=== PATIENT | female | born 1980 | race Caucasian/White ===

== ENCOUNTER 2017-02-26 10:45 | Emergency (ER) | payer BC, OTHER | END 2017-02-26 12:30 | disposition left against medical advice (07) | LOC: UCEAST 10:45 | DX: R50.9 Fever, unspecified (principal); Z53.21 Procedure and treatment not carried out due to patient leaving prior to being seen by health care provider ==

== ENCOUNTER 2017-02-26 14:35 | Emergency (ER) | payer BC ==
--- NOTE | 2017-02-26 16:17 | UC ---
UC General HPI - HPI Summary HPI Summary: subjective fever and body aches for 1 day, no cough, nausea, vomiting or diarrhea. patient is concerned about typhoid fever (as she stated having it several times in the past - History of Current Complaint Chief Complaint: UCGeneralIllness Stated Complaint: FEVER Time Seen by Provider: 02/26/17 15:53 Hx Obtained From: Patient Hx Last Menstrual Period: 02/03/17 Onset/Duration: Sudden Onset, Lasting Days, Still Present Timing: Constant Onset Severity: Mild Current Severity: Mild - Allergy/Home Medications Allergies/Adverse Reactions: Allergies Allergy/AdvReac Type Severity Reaction Status Date / Time No Known Allergies Allergy Verified 02/26/17 11:44 PMH/Surg Hx/FS Hx/Imm Hx Previously Healthy: No - Typhoid - Surgical History Surgical History: None - Family History Known Family History: Positive: None - Social History Occupation: Disabled Lives: With Family Alcohol Use: None Substance Use Type: None Smoking Status (MU): Never Smoked Tobacco Have You Smoked in the Last Year: No - Immunization History Most Recent Influenza Vaccination: 12/2016 Review of Systems Constitutional: Chills, Fatigue Skin: Negative Eyes: Negative ENT: Negative Respiratory: Negative Cardiovascular: Negative Gastrointestinal: Negative Genitourinary: Negative Motor: Negative Neurovascular: Negative Musculoskeletal: Negative Neurological: Negative Psychological: Negative Is Patient Immunocompromised?: No All Other Systems Reviewed And Are Negative: Yes Physical Exam Triage Information Reviewed: Yes Appearance: Well-Appearing, No Pain Distress, Well-Nourished Vital Signs: Initial Vital Signs Temp 99.0 F 02/26/17 15:06 Pulse 74 02/26/17 15:06 Resp 18 02/26/17 15:06 BP 141/87 02/26/17 15:06 Pulse Ox 99 02/26/17 15:06 Vital Signs Reviewed: Yes Eye Exam: Normal Eyes: Positive: Conjunctiva Clear ENT Exam: Normal ENT: Positive: Normal ENT inspection, Hearing grossly normal, Pharynx normal, TMs normal, Uvula midline. Negative: Nasal congestion, Nasal drainage, TM bulging, Tonsillar swelling, Tonsillar exudate, Trismus, Muffled voice, Hoarse voice, Dental tenderness, Sinus tenderness Dental Exam: Normal Neck exam: Normal Neck: Positive: Supple, Nontender, No Lymphadenopathy Respiratory Exam: Normal Respiratory: Positive: Chest non-tender, Lungs clear, Normal breath sounds, No respiratory distress, No accessory muscle use Cardiovascular Exam: Normal Cardiovascular: Positive: RRR, No Murmur, Pulses Normal, Brisk Capillary Refill Abdominal Exam: Normal Abdomen Description: Positive: Nontender, No Organomegaly, Soft. Negative: CVA Tenderness (R), CVA Tenderness (L), Distended, Guarding Bowel Sounds: Positive: Present Musculoskeletal Exam: Normal Musculoskeletal: Positive: Strength Intact, ROM Intact, No Edema Neurological Exam: Normal Neurological: Positive: Alert, Muscle Tone Normal Psychological Exam: Normal Skin Exam: Normal Diagnostics - Laboratory Diagnostic Studies Completed/Ordered: influenza (-) , Ua trace leuks, Course/Dx - Course Course Of Treatment: tylenol, ibuprofen for pain, increase fluids, follow with pcp, ed or ID if symptoms fail to resolve or worsen in any way - Differential Dx - Multi-Symptom Provider Diagnoses: Viral illness Discharge - Discharge Plan Condition: Stable Disposition: HOME Patient Education Materials: Ibuprofen (By mouth), Viral Syndrome (ED) Referrals: Helen RASHID,Chilo Henson [Medical Doctor] - 3 Days Additional Instructions: I believe that you have a viral illness that is very common in [facility] this time of year. However--If you symptoms worsen in any way please go to the emergency department for a more in depth evaluation. If you do not feel better in the next 2-3 [address] follow with [address] Cervantes.
== END 2017-02-26 16:51 | disposition home or self-care (01) ==
LOC: UCEAST 14:35
DX: B34.9 Viral infection, unspecified (principal)
CPT/HCPCS: 81003; 87086; 87502; 99211; G0463

== ENCOUNTER 2017-03-08 15:34 | Emergency (ER) | payer BC, MEDICAID ==
[2017-03-08 16:20] VITALS: BP 142/89
[2017-03-08] MEDS ORDERED: Prochlorperazine TAB* 10 MG PO ONE (16:36)
[2017-03-08] MEDS ORDERED: Ketorolac INJ* 60 MG/2 ML VIAL IM ONE (16:36)
[2017-03-08] MEDS ORDERED: Metoclopramide TAB* 10 MG PO ONE (16:48)
--- NOTE | 2017-03-08 17:53 | RAD ---
INDICATION: Headaches COMPARISON: None TECHNIQUE: Noncontrast axial source images were acquired from the skull base to the vertex. FINDINGS: Ventricles/sulci: The ventricles and cisterns are normal in size and configuration for age. Brain parenchyma: There is no focal parenchymal finding, evidence of intracranial mass, or intracranial mass effect. Intracranial hemorrhage:None. Extra-axial spaces: There are no abnormal extra axial fluid collections or evidence of extra-axial mass. Calvarium: There is no calvarial fracture or other calvarial abnormality. Scalp: There is no evidence of scalp or extracalvarial soft tissue abnormality. Paranasal sinuses/mastoid: The paranasal sinuses and mastoid air cells are clear. Other: None. IMPRESSION: NEGATIVE EXAMINATION
--- NOTE | 2017-03-08 18:32 | UC ---
Lavell Skelton Alfonso, scribed for Gioavnny Ledezma MD on 03/08/17 at 1633 . Headache HPI - HPI Summary HPI Summary: This patient is a 36 year old F presenting to [facility] with a chief complaint of a frontal headache since more than 10 days ago. The patient rates the aching pain 10/10 in severity. Symptoms aggravated by nothing. Symptoms alleviated by nothing. Symptoms not alleviated by Ibuprofen. Patient reports nausea, and right -sided neck pain. Patient denies fever, and vomiting. - History Of Current Complaint Chief Complaint: UCGeneralIllness Stated Complaint: HEADACHE, FEVER, AND NAUSEA Time Seen by Provider: 03/08/17 16:24 Hx Obtained From: Patient Hx Last Menstrual Period: 03/05/17 Onset/Duration: Lasting Days, Still Present Onset Of Symptoms: Still Present Currently Pain Is: Severe Pain Intensity: 10 Pain Scale Used: 0-10 Numeric Timing: Constant Aggravating Factor(s): Nothing Allevating Factor(s): Nothing Associated Signs And Symptoms: Positive: Other (Noted In Comments) - nausea, and right-sided neck pain. Patient denies fever, and vomiting. - Allergies/Home Medications Allergies/Adverse Reactions: Allergies Allergy/AdvReac Type Severity Reaction Status Date / Time No Known Allergies Allergy Verified 03/08/17 16:08 Home Medications: Home Medications Acetaminophen [Acetaminophen Extra Stren] 500 mg PO 03/08/17 [History] PMH/Surg Hx/FS Hx/Imm Hx - Additional Past Medical History Additional PMH: Headaches, Typhoid fever. Previously Healthy: No - Surgical History Surgical History: None - Family History Known Family History: Negative: Cardiac Disease, Hypertension, Diabetes - Social History Alcohol Use: None Substance Use Type: None Smoking Status (MU): Never Smoked Tobacco Have You Smoked in the Last Year: No - Immunization History Most Recent Influenza Vaccination: 12/2016 Review of Systems Constitutional: Other - Negative fever Gastrointestinal: Nausea, Other - Negative vomiting Musculoskeletal: Other: - right-sided neck pain Neurological: Headache Is Patient Immunocompromised?: Yes All Other Systems Reviewed And Are Negative: Yes Physical Exam Triage Information Reviewed: Yes Vital Signs: Initial Vital Signs Temp 99.7 F 03/08/17 16:11 Pulse 88 03/08/17 16:11 Resp 18 03/08/17 16:11 BP 142/89 12/21/17 16:11 Pulse Ox 100 03/08/17 16:11 Vital Signs Reviewed: Yes - Additional Comments VITAL SIGNS: Reviewed. GENERAL: Patient is a well-developed and nourished female who is lying comfortable in the stretcher. Patient is not in any acute respiratory distress. HEAD AND FACE: Normocephalic EYES: PERRLA, EOMI x 2. EARS: Hearing grossly intact. MOUTH: Oropharynx within normal limits. NECK: Supple, trachea is midline, no adenopathy, no JVD, no carotid bruit. CHEST: Symmetric, no tenderness at palpation LUNGS: Clear to auscultation bilaterally. No wheezing or crackles. CVS: Regular rate and rhythm, S1 and S2 present, no murmurs or gallops appreciated. ABDOMEN: Soft, non-tender. Bowel sounds are normal. No abdominal abnormal pulsations. EXTREMITIES: Full ROM in all major joints, no edema, no cyanosis or clubbing. NEURO: Alert and oriented x 3. No acute neurological deficits. Speech is normal and follows commands. SKIN: Dry and warm Diagnostics - Laboratory Diagnostic Studies Completed/Ordered: CT Brain reveals, per radiologist, NEGATIVE EXAMINATION. [facility] physician has reviewed this radiology report. Headache Course/Dx - Course Course Of Treatment: This patient is a 36 year old F presenting to [facility] with a chief complaint of a frontal headache since more than 10 days ago. The patient rates the aching pain 10/10 in severity. Symptoms aggravated by nothing. Symptoms alleviated by nothing. Symptoms not alleviated by Ibuprofen. Patient reports nausea, and right-sided neck pain. Patient denies fever, and vomiting. CT Brain reveals, per radiologist, NEGATIVE EXAMINATION. [facility] physician has reviewed this radiology report. In the [facility] course the patient was given Toradol , Reglan, and Compazine. Patient will be discharged with prescription follow up from PCP. The patient is agreeable with this plan. The patient is hemodynamically stable, alert and oriented x3. - Differential Dx/Diagnosis Differential Diagnosis/HQI/PQRI: Migraine, Sinus Headache, Tension Headache Provider Diagnoses: headache Discharge - Discharge Plan Condition: Stable Disposition: HOME Prescriptions: Butalb/Acetamin/Caff TAB* [Fioricet TAB*] 1 tab PO Q6H PRN #[id number] tab MDD 4 PRN Reason: Pain Patient Education Materials: General Headache (ED) Referrals: [facility] [place] PHYSICIAN REFERRAL [Outside] - 3 Days Additional Instructions: RETURN TO THE EMERGENCY DEPARTMENT OR CONVIENT CARE FOR CHANGING OR WORSENING SYMPTOMS. The documentation as recorded by the Lavell elizalde Alfonso accurately reflects the service I personally performed and the decisions made by , Giovanny Ledezma MD.
== END 2017-03-08 18:06 | disposition home or self-care (01) ==
LOC: UCEAST 15:34
DX: R51 Headache (principal); M54.2 Cervicalgia; R50.9 Fever, unspecified; R11.0 Nausea
CPT/HCPCS: 70450; 81025; 96372; 99212; A9270-GY; G0463; J1885; Q0164